=== PATIENT | female | born 1960 | race Caucasian/White ===

== ENCOUNTER → 2016-12-23 | Outpatient (CLI) | payer OTHER | END | disposition home or self-care (01) | LOC: GMAH 12-22 16:35 → LAB.O 08:34 | PROVIDERS: ATTEND Family Medicine | DX: I10 Essential (primary) hypertension (principal) ==

== ENCOUNTER → 2017-02-02 | Outpatient (CLI) | payer OTHER | END | disposition home or self-care (01) | LOC: GMAH 10:32 | PROVIDERS: ATTEND Family Medicine | DX: E87.6 Hypokalemia (principal) ==

== ENCOUNTER → 2017-03-08 | Outpatient (CLI) | payer OTHER | END | disposition home or self-care (01) | LOC: LAB.O 09:47 | PROVIDERS: ATTEND Family Medicine | DX: E87.6 Hypokalemia (principal) ==

== ENCOUNTER → 2017-04-05 | Outpatient (CLI) | payer OTHER | END | disposition home or self-care (01) | LOC: LAB.O 14:19 | PROVIDERS: ATTEND Family Medicine | DX: E87.6 Hypokalemia (principal) ==

== ENCOUNTER → 2017-04-08 | Outpatient (CLI) | payer OTHER ==
--- NOTE | 2017-04-09 10:15 | RAD ---
EXAM DESCRIPTION: Foot,Right 3 Views CLINICAL HISTORY: 57 years, Female, FOOT PAIN COMPARISON: None. FINDINGS: No fracture or dislocation. There is some nonspecific cortical thickening mid shaft third metatarsal be normal variant injury. Plantar heel spur. Some mild soft tissue swelling over the dorsum IMPRESSION: No fracture or dislocation. Plantar heel spur. Mild soft tissue swelling dorsum foot Electronically signed by: Adan Huitron MD 04/09/2017 10:14 AM CDT
== END | disposition home or self-care (01) ==
LOC: RAD 09:57
DX: M79.672 Pain in left foot (principal); M77.51 Other enthesopathy of right foot and ankle; M79.89 Other specified soft tissue disorders

== ENCOUNTER → 2017-05-05 | Outpatient (CLI) | payer OTHER | LOC: LAB.O 10:44 | PROVIDERS: ATTEND Family Medicine | DX: E87.6 Hypokalemia (principal) ==

== ENCOUNTER → 2017-06-20 | Outpatient (CLI) | payer OTHER ==
--- NOTE | 2017-06-21 15:46 | US ---
EXAM DESCRIPTION: Pelvic,Non-OB CLINICAL HISTORY: RIGHT OVARIAN CYST COMPARISON: MRI pelvis April 22, 2016. An older pelvic ultrasound from February 19, 2015 contains only a single image and is not helpful for comparison. TECHNIQUE: Transvaginal pelvic US was performed. FINDINGS: Uterus: The uterus is anteverted and measures 7.7 cm in length. The endometrium is suboptimally visualized but does not appear thickened. The myometrium appears diffusely heterogeneous with a questionable 1 cm intramural fibroid anteriorly. Cervix: Unremarkable. Right Ovary/Right Adnexa: The right ovary measures 6.7 x 5.2 x 5.0 cm and is nearly completely occupied by a large cyst with low-level internal echogenicity. Blood flow to the right ovary is noted along the periphery of the stomach lesion. The right ovarian cyst does not appear significantly changed in size from April 22, 2016. Left Ovary/Left Adnexa: The left ovary is suboptimally visualized but measures approximately 1.9 x 0.7 x 0.9 cm. The left ovarian or other left adnexal lesion. Blood flow is present to the left ovary.. Free Fluid: No pathologic free fluid. IMPRESSION: Large right ovarian cyst measuring approximately 6.7 cm maximum dimension with low-level internal echogenicity but no definite septation or other solid component. The size of the cyst is unchanged from April,. Considering its stability from the prior MRI, size and appearance on today's exam, this is almost certainly benign. Additional follow-up ultrasound in one year is recommended to document continued stability. Electronically signed by: Ayan Mosher MD 06/21/2017 3:44 PM CDT Workstation: [id number]
== END ==
LOC: US 14:19
PROVIDERS: ATTEND Obstetrics & Gynecology
DX: N83.291 Other ovarian cyst, right side (principal)

== ENCOUNTER → 2017-08-30 | Outpatient (CLI) | payer OTHER | END | disposition home or self-care (01) | LOC: GMAH 07:17 | PROVIDERS: ATTEND Family Medicine | DX: I10 Essential (primary) hypertension (principal) ==

== ENCOUNTER 2017-10-12 06:00 | Day surgery (SDC) | payer OTHER ==
[~2017-10-12 06:00] MED LIST: LACTATED RINGERS 1,000 ML ONE; SODIUM CHL 0.9% 100ML MINI-BAG 100 ML IVPB ONE; ceFAZolin SODIUM 1 GM VIAL ONE
[2017-10-12] MEDS ORDERED: LIDOCAINE 2% 5 ML VIAL ONE (06:37)
[2017-10-12] MEDS ORDERED: BUPIVACAINE 0.25% INJ 30 ML VIAL INJ ONE (06:50)
[2017-10-12] MEDS ORDERED: LIDOCAINE 1% 50 ML VIAL INJ ONE (06:50)
[2017-10-12] MEDS: VANCOMYCIN HCL INJ 1,000 MG VIAL IVPB ONE ×2 (07:22→07:31)
[2017-10-12] MEDS: ceFAZolin SODIUM 1 GM VIAL ONE ×2 (07:22→07:31)
[2017-10-12 08:03] VITALS: O2SAT 97
[2017-10-12 08:29] VITALS: BP 122/74; TEMP 96.5
--- NOTE | 2017-10-26 08:53 | OP ---
DATE OF PROCEDURE: 10/12/17 PREOPERATIVE DIAGNOSIS: 1. Ganglion cyst of the finger. POSTOPERATIVE DIAGNOSIS :1. Ganglion cyst of the finger. PROCEDURE: 1. Excision of ganglion cyst. SURGEON: Aden Hughes MD. RN MDS: Bud Lopez CST, SA-C. ANESTHESIA: Local anesthesia. COMPLICATIONS: None. FINDINGS: A small cyst arising from the tendon sheath along the proximal interphalangeal joint of the right third digit. INDICATION: Angelika has a history of a ganglion cyst on the digit. She had some local irritation secondary to that and requested operative intervention for removal. We discussed the risks, benefits and alternatives to operative therapy. After discussing the risks, benefits and alternatives to that, she gave informed consent. PROCEDURE: The patient was brought to the Operating Room and placed in supine position. Under sterile conditions, a digital block was performed and the arm was sterilely prepped and draped. Following prepping and draping, the cyst was approached through a longitudinal incision. Blunt dissection was used to identify the digital nerve which was protected throughout the course. The ganglion cyst was exposed and was removed at its base. Following excision of the cyst, the wound was very thoroughly irrigated and closed with Nylon sutures. Sterile dressing was placed. The patient was then taken back to the Day Surgery Unit. POSTOPERATIVE INSTRUCTIONS: She will followup with us in two days. #[id number] [facility]
== END 2017-10-12 08:25 | disposition home or self-care (01) ==
LOC: AMB 06:00
PROVIDERS: ATTEND Orthopaedic Surgery
DX: M67.441 Ganglion, right hand (principal)
CPT/HCPCS: 26160; 87070; 87077; 87186; J0690; J3370; J7050; J7120

== ENCOUNTER → 2018-01-19 | Outpatient (CLI) | payer OTHER | LOC: LAB.O 10:46 | PROVIDERS: ATTEND Family Medicine | DX: I10 Essential (primary) hypertension (principal) ==

== ENCOUNTER → 2018-04-18 | Outpatient (CLI) | payer OTHER ==
--- NOTE | 2018-04-18 14:24 | RAD ---
EXAM DESCRIPTION: Wrist,Left 3 Views CLINICAL HISTORY: 58 years Female, pain COMPARISON: None available. FINDINGS: The visualized bones are well-mineralized.No acute fracture or dislocation. The soft tissues appear grossly unremarkable. IMPRESSION: Grossly normal radiographs of the left wrist. Electronically signed by: Mary Wheeler MD 04/18/2018 2:22 PM CDT
== END ==
LOC: RAD 09:30
PROVIDERS: ATTEND Orthopaedic Surgery
DX: M25.532 Pain in left wrist (principal)

== ENCOUNTER → 2018-07-18 | Outpatient (CLI) | payer OTHER ==
--- NOTE | 2018-07-18 13:15 | MRI ---
EXAM DESCRIPTION: Brain w/wo Contrast CLINICAL HISTORY: MILD COGNITIVE IMPAIRMENT COMPARISON: None available TECHNIQUE: MRI of the brain is performed according to our usual protocol including multiplanar multi sequence technique. Post gadolinium imaging is performed following IV administration of 20 mL of Magnevist. FINDINGS: Sagittal T1 images show intact corpus callosum. Normal pituitary gland with normal T1 appearance of the opal and medulla and upper cervical cord. Normal signal intensity within the clivus and calvarium. Axial T2 fat sat images reveal preservation of intracranial vascular flow voids. Normal zeng matter and white matter T2 signal intensity. Normal ventricles with normal gyral and sulcal fold pattern. The globes appear intact and symmetrical. No abnormal fluid signal in the paranasal sinuses, tympanic cavities or mastoid air cells. Axial flair images show normal signal intensity of the zeng matter and the white matter. No microvascular ischemic changes. Diffusion weighted images are negative for focal intense increased signal intensity in the brain parenchyma to suggest restricted diffusion. ADC mapping is negative. Axial T1 precontrast images show normal zeng-white matter differentiation. No high signal intensity hemorrhagic lesion of the brain parenchyma. No subdural hematoma. Axial susceptibility weighted images are negative for focal signal loss to suggest abnormal brain parenchymal calcification or hemosiderin deposition. After IV contrast, axial T1 images show normal enhancement of intracranial vessels. No enhancing intracranial mass or abnormal parenchymal enhancement to suggest disruption of the blood brain barrier. Coronal T1 postcontrast images show normal dural sinus enhancement with normal enhancement of the pituitary gland. IMPRESSION: No diagnostic abnormality is identified on pre and postcontrast MR imaging of the brain. Electronically signed by: Ayush Hanley MD 07/18/2018 1:14 PM CDT
--- NOTE | 2018-07-18 15:08 | MRI ---
Study: MRI of the Left Ankle. Indication: ANKLE PAIN Technique: Multiplanar, multi sequence MRI of the left ankle was obtained without intravenous contrast. Comparison: Radiographs July 18, 2018. Findings: Anterior talofibular ligament markedly attenuated indicating prior high-grade partial-thickness tear. Prior sprains of the calcaneofibular ligament, deep deltoid ligament, anterior tibiofibular ligament noted as well. Mild cystic change medial margin lateral malleolus adjacent to the lateral margin talar dome. There is mild grade 4 chondrosis and subchondral marrow change of the superolateral margin of the talar dome. No acute fluid filled tear of the remaining medial or lateral ankle ligaments. Trace tenosynovitis medial tendons and peroneal tendons. Tendinosis and longitudinal fissuring of the peroneus brevis tendon inferior to the lateral malleolus extending to its insertion. No transection. Anterior tendons intact. Low-grade tendinosis critical zone and distal Achilles tendon with trace retrocalcaneal bursal fluid. Subtle insertional posterior tibialis tendinosis. Prior sprain of the distal margin of the spring ligament noted which is thickened with increased internal PD signal. Pes planus noted. No talar coalition. Moderate plantar calcaneal heel spur. Plantar fascia intact. Marrow edema noted within the trigonal process with mild surrounding inflammation as well as minimal adjacent edema in the superior margin calcaneal body. These changes can indicate sequela of posterior ankle impingement. Impression: Prior high-grade partial-thickness tearing anterior talofibular ligament as well as prior sprains of the calcaneofibular ligament, anterior tibiofibular ligament, and deep deltoid ligament. Mild cystic change superolateral talar dome and medial margin of the lateral malleolus indicating occult grade 4 chondrosis at these sites. Tenosynovitis medial tendons and peroneal tendons with long segment tendinosis and longitudinal fissuring previous brevis tendon. Insertional posterior tibialis tendinosis with prior sprain of the underlying spring ligament and mild pes planus. Low-grade Achilles tendinosis without tear. Features of posterior ankle impingement. Electronically signed by: Daljit Santiago MD 07/18/2018 3:06 PM CDT
--- NOTE | 2018-07-18 15:09 | RAD ---
Study: Three views of the Left Ankle. Indication: ANKLE PAIN Comparison: MRI, same day. Impression: Soft tissue swelling about the ankle. No acute fracture or malalignment. Minimal inferior spurring lateral malleolus at the calcaneofibular ligament origin indicating a prior sprain. Moderate plantar calcaneal heel spur. No advanced osteoarthritis. Electronically signed by: Daljit Santiago MD 07/18/2018 3:07 PM CDT
== END ==
LOC: MRI 10:24
PROVIDERS: ATTEND Specialist
DX: G31.84 Mild cognitive impairment of uncertain or unknown etiology (principal); R13.10 Dysphagia, unspecified; S93.432A Sprain of tibiofibular ligament of left ankle, initial encounter; M25.572 Pain in left ankle and joints of left foot; M77.52 Other enthesopathy of left foot and ankle

== ENCOUNTER → 2018-07-25 | Outpatient (CLI) | payer OTHER | LOC: GMAH 06:11 | PROVIDERS: ATTEND Family Medicine | DX: I10 Essential (primary) hypertension (principal) ==

== ENCOUNTER → 2018-08-06 | Outpatient (CLI) | payer OTHER | LOC: SL 21:30 | PROVIDERS: ATTEND Specialist | DX: G47.33 Obstructive sleep apnea (adult) (pediatric) (principal); R53.83 Other fatigue ==

== ENCOUNTER → 2019-02-06 | Outpatient (CLI) | payer BC ==
--- NOTE | 2019-02-06 19:04 | US ---
Study: Pelvic ultrasound. Indication:N83.209 CYST Technique: Multiplanar grayscale sonographic images of the pelvis obtained transabdominally as well as endovaginally Comparison: June 20, 2017. Findings: Uterus measures 8.7 x 3.4 x 4.2 cm. Endometrium measures 0.1 cm. Myometrium unremarkable. Right ovary measures 6.8 x 5.0 x 5.2 cm. It demonstrates a 6.8 x 5.0 x 4.9 cm simple cyst. Left ovary measures 2.4 x 1.3 x 1.6 cm. Left ovary unremarkable. Appropriate color Doppler flow to the ovaries. No free pelvic fluid. Impression: Stable 6.8 cm simple right ovarian cyst. Almost certainly benign. Follow-up sonogram recommended yearly. Electronically signed by: Daljit Santiago MD 02/06/2019 7:01 PM CDT
== END ==
LOC: US 13:46
PROVIDERS: ATTEND Obstetrics & Gynecology
DX: N83.209 Unspecified ovarian cyst, unspecified side (principal)

== ENCOUNTER 2019-02-07 09:57 | Inpatient (IN) | payer BC ==
--- NOTE | 2019-02-07 10:30 | HP ---
CHIEF COMPLAINT: Left elbow pain. HISTORY OF PRESENT ILLNESS: Ms. Zelaya is a 58-year-old female with a history of pain in the elbow. She has had pain going on since she bumped her elbow several days ago. While she has not had any fevers, she states she has been feeling more and more lethargic. She denies any radiation of pain. She had some drainage initially, however, has ceased having drainage. She is now having any increasing erythema in the arm with the increasing lethargy. Because of symptoms, she came to see me. PAST SURGICAL HISTORY: 1. Bursectomy. MEDICATIONS: 1. Lyrica. 2. Lexapro. 3. Flexeril. 4. Carbidopa. 5. Protonix. ALLERGIES: NO KNOWN DRUG ALLERGIES. CODE STATUS: Full code. IMMUNIZATIONS: Up to date. FAMILY HISTORY: None pertinent to today's complaint. SOCIAL HISTORY: The patient does not drink, smoke or use any illicit drugs. REVIEW OF SYSTEMS: Negative except as indicated in the History of Present Illness. PHYSICAL EXAMINATION: MENTAL STATUS: The patient is awake, alert, and is able to give a good history and participate in the physical. The patient is oriented to person, place and time. SKIN: Normal tone and turgor. HEENT: Normocephalic, atraumatic. Pupils equal, round and reactive. Mucosal membranes are moist. NECK: Normal range of motion. No thyromegaly, no lymphadenopathy. CHEST: Normal respiratory excursion. CARDIAC: Regular rate and rhythm. No murmurs, rubs or gallops. MUSCULOSKELETAL: She has full range of motion of the shoulders, digits and wrist. She has full range of motion of both elbows, however, she has pain with elbow flexion and extension. She has some erythema on the olecranon of the left elbow and has about a 7 to 8 mm eschar from the trauma she had. She has erythema extending approximately 8 cm both proximal and distal to the olecranon region. She has full sheet layer strength. Bilateral lower extremities show full active range of motion with 5/5 strength. Sensation is intact. They are warm and well perfused. She has no deformities. PROCEDURE: Under sterile conditions, I was able to aspirate approximately 5 mL of cloudy, but thin fluid. ASSESSMENT: 1. Possible septic bursitis. PLAN: At this point, I think it would be prudent to admit her for IV antibiotics. Given the worsening physical examination and constitutional symptoms, we are going to start her on vancomycin. We will send her fluid off for appropriate labs and will draw blood work to include CBC and blood cultures. #[id number] MTDD
[2019-02-07] MEDS ORDERED: SODIUM CHLORIDE 0.9% (FLUSH) 10 ML SYG IV PRN (10:35)
[2019-02-07] MEDS ORDERED: BISACODYL SUPPOSITORY 10 MG PR PRN (10:38)
[2019-02-07] MEDS ORDERED: TEMAZEPAM 15 MG CAP PO PRN (10:38)
[2019-02-07] MEDS ORDERED: ALUMINUM & MAGNESIUM HYDROXIDE 30 ML UD PO PRN (10:38)
[2019-02-07] MEDS ORDERED: CYCLOBENZAPRINE HCL 10 MG TAB PO PRN (10:38)
[2019-02-07] MEDS ORDERED: BENZOCAINE-MENTH LOZ (CEPACOL) 1 EA LOZ MT PRN (10:38)
[2019-02-07] MEDS ORDERED: MAGNESIUM HYDROXIDE 30 ML UD PO PRN (10:38)
[2019-02-07] MEDS ORDERED: ZOLPIDEM TARTRATE 5 MG TAB PO PRN (10:38)
[2019-02-07] MEDS ORDERED: IV SET AND CAP CHANGE INJ INJ SCH (11:00)
[2019-02-07] MEDS ORDERED: VANCOMYCIN PER PHARMACY INJ SCH (11:00)
[2019-02-07] MEDS ORDERED: VANCOMYCIN HCL INJ 1,000 MG VIAL IVPB ONE ×2 (13:14→19:26)
[2019-02-07] MEDS ORDERED: VANCOMYCIN HCL INJ 500 MG VIAL ONE ×2 (13:14→19:24)
[2019-02-07] MEDS ORDERED: SODIUM CHLORIDE 0.9% 250ML 250 ML ONE ×2 (13:14→19:25)
[2019-02-07] MEDS: VANCOMYCIN HCL INJ 1,000 MG, VANCOMYCIN HCL INJ 500 MG in SODIUM CHLORIDE 0.9% 250ML 25... IVPB SCH (13:24)
[2019-02-07] MEDS ORDERED: KETOROLAC TROMETHAMINE INJ 30 MG/ML VIAL IV ONE (15:45)
[2019-02-07] MEDS ORDERED: cefTRIAXone SODIUM 1 GM VIAL ONE (16:30)
[2019-02-07] MEDS ORDERED: SODIUM CHL 0.9% 50ML MIN-BAG+ 50 ML IVPB ONE (16:30)
[2019-02-07] MEDS: cefTRIAXone SODIUM 1 GM in SODIUM CHL 0.9% 50ML MIN-BAG+ 50 ML IVPB SCH (16:44)
[2019-02-07] MEDS ORDERED: KETOROLAC TROMETHAMINE INJ 30 MG/ML VIAL ONE (19:25)
[2019-02-07] MEDS ORDERED: POTASSIUM CHLORIDE 10 MEQ TAB PO ONE (19:25)
[2019-02-07] MEDS: KCL 20 MEQ/NS 1,000 ML IVS PRN (19:47)
[2019-02-07] MEDS: ACETAMINOPHEN 325 MG TAB PO SCH (19:50)
[2019-02-07] MEDS ORDERED: MELATONIN 3 MG TAB PO SCH (21:00)
[2019-02-07] MEDS: NON-FORMULARY MEDICATION 1 EA MIS (Potassium Chloride [Micro-K] 10 MEQ) PO SCH (21:30)
[2019-02-07] MEDS: PREGABALIN 100 MG CAP PO SCH (21:30)
[2019-02-07] MEDS: PANTOPRAZOLE SODIUM TAB 40 MG PO SCH (21:31)
[2019-02-07] MEDS: MELATONIN 3 MG TAB PO SCH (21:32)
[2019-02-07] MEDS: ATENOLOL 25 MG TAB PO SCH (21:32)
[2019-02-07] MEDS: KETOROLAC TROMETHAMINE INJ 30 MG/ML VIAL IV SCH (21:33)
[2019-02-08] MEDS: VANCOMYCIN HCL INJ 1,000 MG, VANCOMYCIN HCL INJ 500 MG in SODIUM CHLORIDE 0.9% 250ML 25... IVPB SCH ×2 (00:45→15:00)
[2019-02-08] MEDS: ACETAMINOPHEN 325 MG TAB PO SCH ×5 (00:45→16:22)
[2019-02-08] MEDS: KETOROLAC TROMETHAMINE INJ 30 MG/ML VIAL IV SCH ×2 (04:30→10:11)
[2019-02-08] MEDS: KCL 20 MEQ/NS 1,000 ML IVS PRN (04:31)
[2019-02-08] MEDS ORDERED: SODIUM CHLORIDE 0.9% 250ML 250 ML ONE ×2 (07:39→19:50)
[2019-02-08] MEDS ORDERED: SODIUM CHL 0.9% 50ML MIN-BAG+ 50 ML IVPB ONE (07:39)
[2019-02-08] MEDS ORDERED: VANCOMYCIN HCL INJ 500 MG VIAL ONE ×2 (07:39→19:50)
[2019-02-08] MEDS ORDERED: VANCOMYCIN HCL INJ 1,000 MG VIAL IVPB ONE ×2 (07:40→19:51)
[2019-02-08] MEDS ORDERED: cefTRIAXone SODIUM 1 GM VIAL ONE (07:40)
--- NOTE | 2019-02-08 08:10 | CONS ---
SUPERVISING PHYSICIAN: Martin Barton MD CHIEF COMPLAINT: Septic bursitis, left elbow. HISTORY OF PRESENT ILLNESS: Ms. 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 She came to Dr. Hughes's office today with swelling, edema, erythema and pain in her left elbow. She noted she and her had been to [place] on 01/20/19 and she fell and landed on her elbow. She apparently bumped it several days ago and since has had increasing pain in the elbow. She denied any fevers, but notes she does have increasing fatigue. Dr. Hughes was able to do aspiration of the bursa in the office, but given the patient's increasing lethargy, pain and symptoms, he is admitting the patient for concerns for septic bursitis and treatment with parenteral antibiotics. Hospitalist service is being consulted to assist with medical management. The patient was seen in stable condition. She was alert and able to participate fully with physical examination and history. PAST MEDICAL HISTORY: 1. Fibromyalgia. 2. Restless leg syndrome. 3. Hypertension. 4. Depression and anxiety on Lexapro. 5. Chronic gastroesophageal reflux disease on Protonix. PAST SURGICAL HISTORY: 1. Bursectomy of the right hip. 2. Spur removal of both heels. CURRENT MEDICATIONS: 1. Spironolactone 1 daily. 2. Lyrica 100 mg at bedtime. 3. Lyrica 50 mg daily. 4. Micro-K 10 mEq b.i.d. 5. Protonix 60 mg b.i.d. 6. Melatonin 10 mg at h.s. 7. Lexapro 1 tablet at bedtime. 8. Flexeril 10 mg at bedtime. 9. Vitamin D 2000 units daily. 10. Carbidopa/levodopa 25/100 mg 1 at bedtime. 11. Tenormin 25 mg at bedtime. 12. Albuterol inhaler 1 puff q.i.d. as needed. 13. Tylenol 325 mg q.4h. as needed for pain. ALLERGIES: NO KNOWN DRUG ALLERGIES. FAMILY HISTORY: Mother at age 68. Father at age 60. Both had problems with heart disease and high blood pressure. She has two siblings, one brother at age 50 from hypertension, another brother 70 with no chronic medical history. She has two children who are both healthy. SOCIAL HISTORY: The patient lives in [place], [place]. She works in the OR as a nurse. She has been 32 years. She has never smoked and drinks on rare social occasions. She denies illicit drug use. REVIEW OF SYSTEMS: CONSTITUTIONAL: Increasing fatigue and general malaise. Negative for any fevers or unintentional weight loss. HEENT: Negative for headaches, sore throats, earaches, visual disturbances. RESPIRATORY: Denies shortness of breath, wheezing or coughing. CARDIOVASCULAR: Negative for chest pain, palpitations, tachycardia or syncopal episodes. GASTROINTESTINAL: Negative for nausea, vomiting, diarrhea or abdominal pain. GENITOURINARY: Negative for dysuria, hematuria, polyuria. EXTREMITIES: As noted in history of present illness. Left elbow pain and swelling. NEUROLOGIC: Negative for any seizures, ataxia, headaches. Positive as noted in history of present illness for fibromyalgia and restless leg syndrome, but no notable focal neurological deficits. PHYSICAL EXAMINATION: VITAL SIGNS: Temperature 97.7. Pulse 83. Blood pressure 120/77. Respiratory rate 16. Oxygen saturation 100% on room air. Admission weight 106 kg. GENERAL: The patient is resting comfortable, appears to be in no acute distress. She is alert. HEENT: Tympanic membranes clear bilaterally. Oropharynx is pink, moist without any lesions. NECK: Supple, nontender with full range of motion. No jugular venous distention noted. RESPIRATORY: Lungs clear to auscultation bilaterally without any rhonchi, wheezes, or rales. CARDIOVASCULAR: Regular rate and rhythm without any appreciable murmurs, gallops, or rubs. ABDOMEN: Soft, nontender, obese. Positive bowel sounds. EXTREMITIES: Left elbow has approximately 8 mm eschar overlying the olecranon. Erythema is noted with edges marked with it extending distally. Warm to touch and tender. There is notable pain on flexion and extension. Distally, radial pulses are strong. Capillary refill brisk. Negative for any paresthesias. NEUROLOGIC: The patient is alert and oriented times three. Cranial nerves II- XII are grossly intact. LABORATORY: CBC on admission showed white count 7,100, hemoglobin 10.1, hematocrit 31.9. RBC indices indicate a microcytic/hyperchromic presentation. Differential without a left shift. Sedrate normal at 30. Chemistries show normal electrolytes. C-reactive protein is elevated at 7. BUN 23, creatinine 0.89. Synovial fluid cell count and crystals pending. MICROBIOLOGY: Wound culture of left bursa aspirate is pending. RADIOLOGY: No radiographic studies pending. ASSESSMENT: 1. Possible septic bursitis of left elbow. 2. History of hypertension. 3. History of fibromyalgia. 4. Microcytic/hyperchromic anemia needing further workup as an outpatient, possibly related to iron deficiency anemia. 5. Depression and anxiety. 6. History of restless leg syndrome on carbidopa. 7. Chronic gastroesophageal reflux disease on proton pump inhibitor. PLAN: The patient was admitted. We will follow the patient as needed. We will defer further orthopedic management to Dr. Hughes. We will monitor culture results. She has been started on vancomycin. I will go ahead and add Rocephin to cover for some possible strep awaiting culture results. Certainly when culture results are available, we will target antibiotic therapy as appropriate. We will monitor labs and go ahead and do iron studies in the morning with AM labs. We will review her home medications and resume all as appropriate. She will be on DVT prophylaxis with Lovenox. We will start her on some Toradol IV 30 mg and continue with scheduled q.6h. for at least 3 doses to help with some inflammation and pain control. We will anticipate her length of stay to be at least 2 to 3 days. Until she can transition to outpatient management, we will continue to monitor and treat as needed. #[id number] MTDD
--- NOTE | 2019-02-08 08:25 | PN ---
DATE: 02/08/19 SUBJECTIVE: She has improved since yesterday and her pain is decreased. OBJECTIVE: Afebrile. Vital signs stable. The wound is clean and erythema has decreased significantly from yesterday. She still has some swelling and some increased warmth in the elbow. ASSESSMENT: Olecranon bursitis. PLAN: The plan at this point is for her to continue with IV antibiotics. Rocephin has been added to the regimen. We will continue to monitor her elbow. Once we get the cultures back, we will adjust accordingly. #[id number] [facility]
[2019-02-08] MEDS: PANTOPRAZOLE SODIUM TAB 40 MG PO SCH ×2 (08:57→16:18)
[2019-02-08] MEDS: POTASSIUM CHLORIDE 10 MEQ TAB PO SCH ×2 (10:05→20:48)
[2019-02-08] MEDS: SPIRONOLACTONE 25 MG TAB PO SCH (10:05)
[2019-02-08] MEDS: PREGABALIN 25 MG CAP PO SCH (10:05)
[2019-02-08] MEDS: CHOLECALCIFEROL 2,000 IU TAB PO SCH (10:06)
[2019-02-08] MEDS: NON-FORMULARY MEDICATION 1 EA MIS (Potassium Chloride [Micro-K] 10 MEQ) PO SCH (15:37)
[2019-02-08] MEDS: FERROUS GLUCONATE 325 MG TAB PO SCH (16:18)
[2019-02-08] MEDS: cefTRIAXone SODIUM 1 GM in SODIUM CHL 0.9% 50ML MIN-BAG+ 50 ML IVPB SCH (16:18)
[2019-02-08] MEDS: MELATONIN 3 MG TAB PO SCH (20:47)
[2019-02-08] MEDS: PREGABALIN 100 MG CAP PO SCH (20:47)
[2019-02-08] MEDS: ACETAMINOPHEN 325 MG TAB PO PRN (20:48)
[2019-02-08] MEDS: ATENOLOL 25 MG TAB PO SCH (20:48)
[2019-02-08] MEDS: CARBIDOPA/LEVODOPA 25/100 1 TAB PO SCH ×2 (20:49)
[2019-02-08] MEDS ORDERED: CYCLOBENZAPRINE HCL 10 MG TAB PO SCH (21:00)
[2019-02-08] MEDS ORDERED: ESCITALOPRAM 10 MG TAB PO SCH (21:00)
--- NOTE | 2019-02-08 21:38 | PN ---
DATE: 02/08/19 SUPERVISING PHYSICIAN: Martin Barton M.D. SUBJECTIVE: The patient notes that she feels much better today. Her pain has been better controlled. The swelling in her elbow has significantly decreased and she is able to eat. OBJECTIVE: VITAL SIGNS: She remains afebrile with a T max of 98.6, pulse 73, blood pressure 134/84, respirations 16, satting 97% on room air. I's and O's show a positive balance of 1610. Weight 106.9 kg. GENERAL: The patient is resting comfortably. Appears to be in no acute distress. She is alert. CHEST: Clear to auscultation. HEART: Regular rate and rhythm. ABDOMEN: Soft, non- tender. Positive bowel sounds. EXTREMITIES: Left elbow today shows significantly decreased erythema and not warm to touch compared to admission. She has a little more increased range of motion, specifically on extension. NEUROLOGIC: She is alert and oriented times three. LABORATORY: Synovial fluid workup is still pending. Chemistries: I just ran an iron panel on her which showed a low iron of 15, TIBC 300 and iron saturation of 5 with ferritin of 26.9. MICROBIOLOGY: Wound culture shows no growth at 24 hours. RADIOLOGY: No additional radiographic studies. ASSESSMENT: 1. Possible septic bursitis of left elbow with current culture results showing no growth. 2. History of hypertension. 3. History of fibromyalgia. 4. Microcytic/hyperchromic anemia with workup indicating iron deficiency anemia with the patient starting on iron. 5. Depression and anxiety. 6. History of restless leg syndrome on carbidopa. 7. Chronic gastroesophageal reflux disease on proton pump inhibitor. PLAN: Will continue his antibiotic coverage with Rocephin and vancomycin per Pharmacy protocol. Will await final cultures to adjust antibiotic therapy as needed. The patient was started on iron therapy and the patient will need to followup with Dr. Melendez as an outpatient. I anticipate hopefully being able to discharge tomorrow if she continues to show improvement. Until she can transition to outpatient management will continue to monitor and treat as needed. #[id number] [facility]
[2019-02-09] MEDS: VANCOMYCIN HCL INJ 1,000 MG, VANCOMYCIN HCL INJ 500 MG in SODIUM CHLORIDE 0.9% 250ML 25... IVPB SCH ×2 (01:00→15:41)
[2019-02-09 07:56] VITALS: TEMP 98
[2019-02-09] MEDS: PANTOPRAZOLE SODIUM TAB 40 MG PO SCH ×2 (07:56→16:44)
[2019-02-09] MEDS: FERROUS GLUCONATE 325 MG TAB PO SCH ×2 (07:56→17:19)
[2019-02-09] MEDS: POTASSIUM CHLORIDE 10 MEQ TAB PO SCH (09:35)
[2019-02-09] MEDS: CHOLECALCIFEROL 2,000 IU TAB PO SCH (09:35)
[2019-02-09] MEDS: SPIRONOLACTONE 25 MG TAB PO SCH (09:35)
[2019-02-09] MEDS: PREGABALIN 25 MG CAP PO SCH (09:40)
[2019-02-09] MEDS: ACETAMINOPHEN 325 MG TAB PO PRN (09:50)
[2019-02-09 14:16] VITALS: BP 134/82; O2SAT 98
[2019-02-09] MEDS ORDERED: VANCOMYCIN HCL INJ 500 MG VIAL ONE (15:26)
[2019-02-09] MEDS ORDERED: SODIUM CHLORIDE 0.9% 250ML 250 ML ONE (15:26)
[2019-02-09] MEDS ORDERED: VANCOMYCIN HCL INJ 1,000 MG VIAL IVPB ONE (15:27)
[2019-02-09] MEDS ORDERED: SODIUM CHL 0.9% 50ML MIN-BAG+ 50 ML IVPB ONE (16:38)
[2019-02-09] MEDS ORDERED: cefTRIAXone SODIUM 1 GM VIAL ONE (16:39)
[2019-02-09] MEDS: cefTRIAXone SODIUM 1 GM in SODIUM CHL 0.9% 50ML MIN-BAG+ 50 ML IVPB SCH (18:00)
--- NOTE | 2019-02-12 09:01 | PN ---
DATE: 02/09/19 Ms. Zelaya is much improved today compared to yesterday. She has had a significant decrease in the erythema and minimal discomfort. She has full range of motion and she is no longer feeling general malaise. At this point, we are going to continue with antibiotic therapy and I think she can likely be discharged safely on oral antibiotics. I will see her in followup in clinic and she has my personal phone number for over the weekend if she has any change in her condition. She has also been instructed to return to the Emergency Room should any significant change occur. #[id number] MTDD
--- NOTE | 2019-02-13 22:48 | DS ---
SUPERVISING PHYSICIAN: Martin Barton M.D. ADMISSION DIAGNOSIS: 1. Possible septic bursitis of left elbow. 2. History of hypertension. 3. History of fibromyalgia. 4. Microcytic/hyperchromic anemia needing further workup as an outpatient, possibly related to iron deficiency anemia. 5. Depression and anxiety. 6. History of restless leg syndrome on carbidopa. 7. Chronic gastroesophageal reflux disease on proton pump inhibitor. DISCHARGE DIAGNOSIS: 1. Septic bursitis of left elbow with final culture results showing Methicillin resistant Staphylococcus aureus that was sensitive to Bactrim and vancomycin with the patient showing good response to parenteral antibiotics including vancomycin and Rocephin. 2. History of hypertension. 3. History of fibromyalgia. 4. Microcytic/hyperchromic anemia with workup indicating iron deficiency anemia with the patient starting on iron. 5. Depression and anxiety. 6. History of restless leg syndrome on carbidopa. 7. Chronic gastroesophageal reflux disease on proton pump inhibitor. REASON FOR ADMISSION: Ms. 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 She came to Dr. Hughes's office today with swelling, edema, erythema and pain in her left elbow. She noted she and her had been to [place] on 01/20/19 and she fell and landed on her elbow. She apparently bumped it several days ago and since has had increasing pain in the elbow. She denied any fevers, but notes she does have increasing fatigue. Dr. Hughes was able to do aspiration of the bursa in the office, but given the patient's increasing lethargy, pain and symptoms, he is admitting the patient for concerns for septic bursitis and treatment with parenteral antibiotics. Hospitalist service is being consulted to assist with medical management. The patient was seen in stable condition. She was alert and able to participate fully with physical examination and history. LABORATORY STUDIES: White count on admission was 7,100. Differential showed to be without a left shift. Hemoglobin 10.1, hematocrit 31.9 with RBC indices indicating microcytic hypochromic presentation. H&H at discharge was 9 and 28.1. White count was 4,400. Sed rate was 30. Chemistries showed normal electrolytes both on admission and discharge. C reactive protein was 7 on admission and discharge was 3.3. BUN 23, creatinine 0.77. Iron studies showed iron of 15, TIBC of 299 with iron saturation of 5 and ferritin of 26.9. She had a vancomycin trough that was 14.9. Cell count on the aspirated synovial fluid showed 10,608 nucleated cells, 95% neutrophils, 2% lymphocytes. MICROBIOLOGY: Positive MRSA that was sensitive to both Bactrim and vancomycin. RADIOLOGY: No radiographic studies prior to admission. HOSPITAL COURSE: Ms. Zelaya was admitted on 02/07/19 for septic bursitis which was found to be secondary to MRSA. She was started on vancomycin infusions and dual coverage with Rocephin. She did well with the treatment and showed good improvement and was no longer having any significant swelling, redness or soreness in the elbow prior to discharge. She was also found to be anemic which was felt to be secondary to iron deficiency with no acute loss and started on iron supplements, and was showing to be without any complications. She was felt to be clinically stable enough to discharge on 02/09/19. PLAN: Ms. Zelaya is to followup with Dr. Hughes and Dr. Melendez in the following week after discharge. She was to continue her home medications as directed and take new medications as instructed. She was to increase activity as tolerated but no pulling or pushing with the left elbow and arm. She was to shower but no tub baths and to keep the wound clean and covered. Diet at discharge was regular diet as tolerated. Activity as tolerated. Medications at discharge included: 1. Vantin 200 mg twice daily for 21 days. 2. Fergon 325 mg twice daily with food for 30 days to be followed-up with Dr. Melendez. 3. Bactrim DS 1 tab twice daily for 21 days. DISPOSITION: The patient was discharged to the care of her family. Condition at discharge was stable and improving. #[id number] [facility]
== END 2019-02-09 18:35 | disposition home or self-care (01) | DRG 558 ==
LOC: LAB.O 09:57 → MS 10:20
PROVIDERS: ADMIT Orthopaedic Surgery; ATTEND Nurse Practitioner Family
DX: M71.122 Other infective bursitis, left elbow (principal); B95.62 Methicillin resistant Staphylococcus aureus infection as the cause of diseases classified elsewhere; M79.7 Fibromyalgia; G25.81 Restless legs syndrome; I10 Essential (primary) hypertension; K21.9 Gastro-esophageal reflux disease without esophagitis; F41.9 Anxiety disorder, unspecified; F32.9 Major depressive disorder, single episode, unspecified; D50.9 Iron deficiency anemia, unspecified; Z87.828 Personal history of other (healed) physical injury and trauma; Z79.899 Other long term (current) drug therapy

== ENCOUNTER → 2019-03-29 | Outpatient (CLI) | payer BC | LOC: SL 20:00 | PROVIDERS: ATTEND Family Medicine | DX: G47.33 Obstructive sleep apnea (adult) (pediatric) (principal) ==

== ENCOUNTER → 2019-08-29 | Outpatient (CLI) | payer BC | LOC: GMATM 14:08 | PROVIDERS: ATTEND Nurse Practitioner Family | DX: R00.0 Tachycardia, unspecified (principal); R51 Headache ==

== ENCOUNTER → 2019-09-04 | Outpatient (CLI) | payer BC ==
--- NOTE | 2019-09-05 08:39 | MRI ---
EXAM DESCRIPTION: Hip,Right CLINICAL HISTORY: RUPTURE OF MUSCLE. Right hip pain, prior bursectomy. COMPARISON: None Available. TECHNIQUE: MRI of the right hip is performed according to our usual protocol with multiplanar multi sequence imaging. No intravenous contrast. FINDINGS: Bones and joints: No focal bone marrow contusion or fracture. No evidence of avascular necrosis of the femoral heads. The cartilage is intact without full-thickness defect. Labrum: Limited evaluation of the labrum demonstrate no displaced labral tear. Tendons and ligaments: High-grade partial-thickness tears of the gluteus minimus tendon along the anterior greater trochanter facet. No tendon retraction. Mild partial-thickness tear of the anterior fibers of the gluteus medius medius tendon along the posterior lateral trochanter facets. Mild tendinosis of the common hamstring tendons which are otherwise intact. Neural vasculature: The visualized vasculature and sciatic nerve are intact. Soft tissues: Grade 1 strain of the right gluteus minimus and medius muscles. Postsurgical changes and mild edema is noted along the soft tissues overlying the right greater trochanter and surrounding the adjacent tensor fascia. Partially visualized intrapelvic contents demonstrate small fundal uterine leiomyomas. IMPRESSION: 1. Postsurgical changes with mild soft tissue edema overlying the right greater trochanter and surrounding the tensor fascia. 2. High-grade partial-thickness tears of the gluteus minimus tendon without retraction. 3. Mild partial-thickness tears of the anterior gluteus medius tendon without retraction. 4. Grade 1 strains of the gluteus minimus and medius muscles. Electronically signed by: Krystian Castillo DO 09/05/2019 8:37 AM CDT
== END ==
LOC: MRI 11:49
PROVIDERS: ATTEND Orthopaedic Surgery
DX: M62.151 Other rupture of muscle (nontraumatic), right thigh (principal); Z98.890 Other specified postprocedural states

== ENCOUNTER → 2019-09-25 | Outpatient (CLI) | payer BC | LOC: LAB.O 15:43 | PROVIDERS: ATTEND Orthopaedic Surgery | DX: Z01.818 Encounter for other preprocedural examination (principal) ==

== ENCOUNTER 2019-10-09 05:49 | Inpatient (IN) | payer BC ==
[2019-10-09] MEDS ORDERED: VANCOMYCIN HCL INJ 1,000 MG VIAL IVPB ONE ×3 (06:43→19:02)
[2019-10-09] MEDS ORDERED: ceFAZolin SODIUM 1 GM VIAL ONE (06:43)
[2019-10-09] MEDS ORDERED: BUPIVACAINE LIPOSOME 13.3 MG/ML VIAL INJ ONE (06:44)
[2019-10-09] MEDS ORDERED: KETAMINE HCL 100 MG/ML VIAL ONE (06:47)
[2019-10-09] MEDS ORDERED: fentaNYL CITRATE INJ 50 MCG/ML AMP ONE (06:48)
[2019-10-09] MEDS ORDERED: ACETAMINOPHEN IV 1000MG 100 ML ONE (06:48)
[2019-10-09] MEDS ORDERED: ROCURONIUM BROMIDE 10 MG/ML VIAL ONE (06:48)
[2019-10-09] MEDS ORDERED: MIDAZOLAM INJ 5 MG/5 ML VIAL ONE (06:48)
[2019-10-09] MEDS ORDERED: methylPREDNISolone ACETATE 80 MG/ML VIAL ONE (07:07)
[2019-10-09] MEDS ORDERED: LIDOCAINE 1% W/ EPINEPHRINE 20 ML VIAL INJ ONE (07:07)
[2019-10-09] MEDS: BUPIVACAINE 0.5% 30 ML VIAL INJ ONE ×3 (07:25→09:12)
[2019-10-09] MEDS ORDERED: SUGAMMADEX SODIUM 200 MG/2 ML VIAL IV ONE (08:35)
[2019-10-09] MEDS ORDERED: ELECTROLYTE-A 1,000 ML IVS ONE (08:35)
[2019-10-09] MEDS ORDERED: CYCLOBENZAPRINE HCL 10 MG TAB PO PRN (09:18)
[2019-10-09] MEDS ORDERED: MORPHINE SULFATE INJ 10 MG/ML VIAL IV PRN (09:18)
[2019-10-09] MEDS ORDERED: ACETAMINOPHEN 500 MG TAB PO PRN (09:18)
[2019-10-09] MEDS ORDERED: ACETAMINOPHEN 325 MG TAB PO PRN (09:18)
[2019-10-09] MEDS ORDERED: PROMETHAZINE HCL INJ 12.5 MG in SODIUM CHLORIDE 0.9% 50ML 50 ML IVPB PRN (09:18)
[2019-10-09] MEDS ORDERED: BENZOCAINE-MENTH LOZ (CEPACOL) 1 EA LOZ MT PRN (09:18)
[2019-10-09] MEDS ORDERED: TEMAZEPAM 15 MG CAP PO PRN (09:18)
[2019-10-09] MEDS ORDERED: DEX 5% W/NACL 0.45% 1000ML 1,000 ML IVS PRN (09:18)
[2019-10-09] MEDS ORDERED: ALUMINUM & MAGNESIUM HYDROXIDE 30 ML UD PO PRN (09:18)
[2019-10-09] MEDS ORDERED: ONDANSETRON INJ 4 MG/2 ML VIAL IV PRN (09:18)
[2019-10-09] MEDS ORDERED: SODIUM CHLORIDE 0.9% (FLUSH) 10 ML SYG IV PRN (09:18)
[2019-10-09] MEDS ORDERED: MAGNESIUM HYDROXIDE 30 ML UD PO PRN (09:18)
[2019-10-09] MEDS ORDERED: ZOLPIDEM TARTRATE 5 MG TAB PO PRN (09:18)
[2019-10-09] MEDS ORDERED: NALOXONE HCL INJ 0.4 MG/ML VIAL IV PRN (09:18)
[2019-10-09] MEDS ORDERED: traMADol HCL 50 MG TAB PO PRN (09:18)
[2019-10-09] MEDS ORDERED: MORPHINE SULFATE INJ 10 MG/ML VIAL IM PRN (09:18)
[2019-10-09] MEDS ORDERED: PROMETHAZINE HCL INJ 25 MG in SODIUM CHLORIDE 0.9% 50ML 50 ML IVPB PRN (09:18)
[2019-10-09] MEDS ORDERED: BISACODYL SUPPOSITORY 10 MG PR PRN (09:18)
[2019-10-09] MEDS ORDERED: MORPHINE PCA 1 MG/ML 100 ML BAG IVPB SCH (09:30)
[2019-10-09] MEDS ORDERED: IV SET AND CAP CHANGE INJ INJ SCH (09:30)
[2019-10-09] MEDS ORDERED: HYDROmorphone HCL INJ 2 MG/ML VIAL ONE (09:54)
[2019-10-09] MEDS ORDERED: MAGNESIUM SULFATE INJ 1 GM/2 ML VIAL IVPB ONE (10:00)
[2019-10-09] MEDS ORDERED: HYDROmorphone HCL INJ 2 MG/ML VIAL IV ONE ×5 (10:00→10:30)
[2019-10-09] MEDS ORDERED: DEXAMETHASONE INJ 10 MG/ML VIAL IV ONE (10:00)
[2019-10-09] MEDS ORDERED: ePHEDrine SULF 50 MG/ML IV ONE (10:00)
[2019-10-09] MEDS ORDERED: SODIUM CHLORIDE 0.9% 50 ML VIAL INJ ONE (10:00)
[2019-10-09] MEDS ORDERED: PROPOFOL 200 MG/20 ML VIAL IV ONE (10:00)
[2019-10-09] MEDS ORDERED: raNITIdine HCL INJ 25 MG/ML VIAL IV ONE (10:00)
[2019-10-09] MEDS ORDERED: MORPHINE SULFATE INJ 10 MG/ML VIAL IV ONE ×2 (10:44→10:54)
[2019-10-09] MEDS ORDERED: MORPHINE PCA 1 MG/ML 100 ML BAG IVPB ONE (11:10)
--- NOTE | 2019-10-09 13:39 | CONS ---
SUPERVISING PHYSICIAN: Sebastian Newton MD DATE OF CONSULTATION: 10/09/19 REASON FOR CONSULTATION: Medical management. HISTORY OF PRESENT ILLNESS: This is a 59-year-old female who underwent surgical intervention today. Apparently she had a right hip abductor muscle tear as well as some left hip bursitis. Therefore, she underwent a right hip abductor musculature repair today and also a steroid injection of the left hip bursa. There were no intraoperative complications. The patient came in Medical/Surgical Unit postoperatively. She was in no distress and had no complaints of pain at this time. PAST MEDICAL HISTORY: 1. Fibromyalgia. 2. Restless leg syndrome. 3. Hypertension. 4. Depression with anxiety. 5. Gastroesophageal reflux disease. 6. Asthma. PAST SURGICAL HISTORY: 1. Bursectomy of the right hip. 2. Bone spur removal from both heels. MEDICATIONS: Please medication reconciliation list once it is confirmed in the computer. ALLERGIES: NO KNOWN DRUG ALLERGIES. FAMILY HISTORY: Her mother was at age 68. Father at age 60. Both had heart disease and high blood pressure. She has two siblings, one brother who at age 50 from hypertension and another brother who is 70 years old with no medical history. She has two children who are healthy. 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 She is and has two children. She has never smoked or done illicit drugs, however, she does drink alcohol on occasion. REVIEW OF SYSTEMS: She had some right hip pain and left hip pain, but otherwise no other significant orthopedic complaints. She does have a history of asthma well. She took a breathing treatment on the way into the hospital. PHYSICAL EXAMINATION: VITAL SIGNS: Blood pressure 125/73. Heart rate 80. Respiratory rate 20. Temperature 96.4. Oxygen saturation 96%. GENERAL: Ms. Zelaya is a 59-year-old female who is in no active distress currently. NEUROLOGIC: The patient is alert and oriented. LUNGS: Clear to auscultation bilaterally. CARDIOVASCULAR: Regular rate and rhythm. Normal S1, S2. ABDOMEN: Soft. Positive bowel sounds. EXTREMITIES: Right hip with dressing which is dry and intact. Ice pack is in place. Peripheral pulses are 2+. Capillary refill is less than 2 seconds. ASSESSMENT: 1. Right hip abductor musculature tear status post right abductor musculature repair, postoperative day 0. 2. Left hip bursitis status post steroid injection to the left hip bursa. 3. Asthma. 4. Fibromyalgia. 5. Restless leg syndrome. 6. Hypertension. 7. Depression with anxiety. 8. Reflux. PLAN: At this time, the patient will be admitted to the Med/Surg Unit and participate in physical therapy as well as pain control measures. We will resume her home medications as well. We will monitor the patient's physical therapy needs and follow as an inpatient. [facility][id number]
[2019-10-09] MEDS ORDERED: ceFAZolin SODIUM 2 GRAMS PREMI 50 ML IVPB ONE ×2 (16:03→19:02)
[2019-10-09] MEDS: ceFAZolin SODIUM 2 GRAMS PREMI 2 GM in PREMIX BAG 1 BAG IVPB SCH ×2 (16:06→23:56)
[2019-10-09] MEDS ORDERED: SODIUM CHLORIDE 0.9% 250ML 250 ML ONE ×2 (17:56→19:01)
[2019-10-09] MEDS: CELECOXIB 100 MG CAP PO SCH (18:01)
[2019-10-09] MEDS: VANCOMYCIN HCL INJ 1,000 MG in SODIUM CHLORIDE 0.9% 250ML 250 ML IVPB SCH (18:04)
[2019-10-09] MEDS ORDERED: MELATONIN 3 MG TAB PO SCH (21:00)
[2019-10-09] MEDS ORDERED: DOCUSATE CALCIUM 240 MG CAP PO SCH (21:00)
[2019-10-09] MEDS ORDERED: ALBUTEROL INHALER 64 PUFF/8GM INH PRN (22:08)
[2019-10-09] MEDS ORDERED: PREGABALIN 100 MG CAP PO ONE (22:13)
[2019-10-10] MEDS: VANCOMYCIN HCL INJ 1,000 MG in SODIUM CHLORIDE 0.9% 250ML 250 ML IVPB SCH (06:05)
[2019-10-10] MEDS ORDERED: POTASSIUM CHLORIDE 10 MEQ TAB PO ONE (07:25)
[2019-10-10] MEDS ORDERED: ceFAZolin SODIUM 2 GRAMS PREMI 50 ML IVPB ONE (07:25)
[2019-10-10] MEDS ORDERED: PREGABALIN 25 MG CAP ONE (07:26)
[2019-10-10] MEDS: ceFAZolin SODIUM 2 GRAMS PREMI 2 GM in PREMIX BAG 1 BAG IVPB SCH (07:28)
[2019-10-10] MEDS: CELECOXIB 100 MG CAP PO SCH (07:28)
[2019-10-10] MEDS: HYDROcodone 5MG/APAP 325MG 1 EA TAB PO PRN ×2 (08:04→13:08)
[2019-10-10] MEDS ORDERED: SPIRONOLACTONE 25 MG TAB PO SCH (09:00)
[2019-10-10] MEDS ORDERED: MAGNESIUM OXIDE 400 MG TAB PO SCH (09:00)
[2019-10-10] MEDS ORDERED: PREGABALIN 25 MG CAP PO SCH (09:00)
[2019-10-10] MEDS ORDERED: POTASSIUM CHLORIDE 10 MEQ TAB PO SCH (09:00)
--- NOTE | 2019-10-10 09:07 | OP ---
DATE OF PROCEDURE: 10/09/19 PREOPERATIVE DIAGNOSIS: 1. Abductor musculature rupture. POSTOPERATIVE DIAGNOSIS: 1. Rupture of the gluteus minimus and partial rupture of the gluteus medius tendons from their anatomic insertion. PROCEDURE: 1. Repair of abductor tendons. SURGEON: Aden Hughes MD. JOB RECRUITER: Bud Lopez CST, -C. ANESTHESIA: General anesthesia. COMPLICATIONS: None. FINDINGS: 1. Rupture of the gluteus minimus tendon. 2. Partial rupture of the gluteus medius tendon. INDICATION: Ms. Zelaya has a long history of severe pain associated with her bursitis. She had been undergoing injections and tried to avoid surgery. Unfortunately, she no longer could tolerate the pain and as such, we discussed her options. After discussing the risks, benefits and alternatives to operative therapy, the patient has given informed consent. PROCEDURE: The patient was brought to the Operating Room and placed in supine position. General anesthesia was induced and she was transitioned into the left lateral decubitus position. Following that, an incision was made in line with previous incision for her bursectomy. Dissection was carried down to the iliotibial band. After the iliotibial band was split along the course of its fibers, the abductor musculature was identified. The above findings were noted. The abductor musculature was freed from adhesions and fully mobilized. Following that, the bony insertion was debrided. Two suture anchors that were double loaded were placed and used to reapproximate the tendons anatomically. Following that, the tendon insertions were oversewn further with Ethibond. The rest of the wound was very thoroughly irrigated. The remaining musculature and the iliotibial band were closed with PDS. Following closure with PDS, the skin was closed with a combination of running and interrupted subcuticular stitches. Sterile dressings were placed. The patient was transitioned into the supine position and awoken from anesthesia. She was taken to the Recovery Room. POSTOPERATIVE PLAN: She will be restricted from any abduction. She will have flexion only to 90 degrees and external and internal rotation only at neutral. She will also be about 50% weightbearing. #[id number] [facility]
--- NOTE | 2019-10-10 09:16 | PN ---
DATE: 10/10/19 SUBJECTIVE: Angelika has been doing pretty well and has been up to the bathroom on her own with a walker. OBJECTIVE: Afebrile. Vital signs stable. Dressing is clean, dry and intact. ASSESSMENT: Status post abductor musculature repair. PLAN: The plan today is to discharge her. She has been given appropriate instructions on wound care. She will followup with us in 2 weeks. #[id number] [facility]
[2019-10-10 09:43] VITALS: TEMP 97.9
[2019-10-10 12:19] VITALS: O2SAT 95
[2019-10-10 12:24] VITALS: BP 126/79
[2019-10-10] MEDS ORDERED: ESCITALOPRAM 10 MG TAB PO SCH (21:00)
[2019-10-10] MEDS ORDERED: ATENOLOL 25 MG TAB PO SCH (21:00)
[2019-10-10] MEDS ORDERED: MELATONIN 3 MG TAB PO SCH (21:00)
[2019-10-10] MEDS ORDERED: CARBIDOPA/LEVODOPA 25/100 1 TAB PO SCH (21:00)
[2019-10-10] MEDS ORDERED: PREGABALIN 100 MG CAP PO SCH (21:00)
[2019-10-10] MEDS ORDERED: CYCLOBENZAPRINE HCL 10 MG TAB PO SCH (21:00)
--- NOTE | 2019-10-11 07:56 | DS ---
SUPERVISING PHYSICIAN: Sebastian Newton MD DISCHARGE DIAGNOSIS: 1. Right hip abductor musculature tear status post right abductor musculature repair, postoperative day 1. 2. Left hip bursitis status post steroid injection to the left hip bursa. 3. Asthma. 4. Fibromyalgia. 5. Restless leg syndrome. 6. Hypertension. 7. Depression with anxiety. 8. Reflux. HISTORY OF PRESENT ILLNESS: This is a 59-year-old female patient who underwent surgical intervention by Dr. Aden Hughes today. She had a right hip abductor muscle tear as well as some left hip bursitis. Therefore, she underwent a right hip abductor musculature repair today and also a steroid injection of the left hip bursa. There were no intraoperative complications. Postoperatively, she was admitted to the Floor for observation. HOSPITAL COURSE: Her pain was well controlled overnight. She has met her goals with Physical Therapy and she will be discharged home today in stable condition. LABORATORY: Hemoglobin and hematocrit were stable today at 11.6 and 35.3. UDS was negative on admission. All other labs and films have been reviewed via the EMR. DISCHARGE PLAN: The patient will be discharged home in stable condition. She is to resume her previous diet as well as her previous medications. In addition to her routine medications, she will also have hydrocodone for pain. She is to increase her activity as per Physical Therapy and have physical therapy scheduled at [facility]. She has a followup appointment with Dr. Hughes on 10/25/19 at 10:30 AM. She is to return to the hospital or followup with Dr. Hughes for any problems or complications. DISCHARGE MEDICATIONS: 1. Potassium chloride. 2. Melatonin. 3. Cyclobenzaprine. 4. Carbidopa/Levodopa. 5. Albuterol. 6. Pantoprazole. 7. Spironolactone. 8. Lexapro. 9. Tenormin. 10. Lyrica. 11. Hydrocodone. #[id number] [facility]
== END 2019-10-10 15:30 | disposition home or self-care (01) | DRG 502 ==
LOC: AMB 05:49 → MS 11:35
PROVIDERS: ADMIT Orthopaedic Surgery; ATTEND Nurse Practitioner Acute Care
PROC: 0LMJ0ZZ Reattachment of Right Hip Tendon, Open Approach (ICD-10-PCS; principal; 2019-10-09 07:00)
DX: M66.38 Spontaneous rupture of flexor tendons, other site (principal); M79.7 Fibromyalgia; G25.81 Restless legs syndrome; I10 Essential (primary) hypertension; F41.8 Other specified anxiety disorders; K21.9 Gastro-esophageal reflux disease without esophagitis; J45.909 Unspecified asthma, uncomplicated; G47.30 Sleep apnea, unspecified; E66.9 Obesity, unspecified; Z68.38 Body mass index [BMI] 38.0-38.9, adult; Z79.899 Other long term (current) drug therapy

== ENCOUNTER → 2020-03-25 | Outpatient (CLI) | payer BC ==
--- NOTE | 2020-03-25 14:09 | RAD ---
EXAM DESCRIPTION: Foot,Left 3 Views CLINICAL HISTORY: FOOT PAIN COMPARISON: 04/08/2017. TECHNIQUE: AP, LATERAL, AND OBLIQUE FINDINGS: The visualized bones appear well mineralized. No acute fracture or dislocation. Mild osteoarthritis of the first metatarsophalangeal joint. Small plantar calcaneal spur. The soft tissues appear grossly unremarkable. IMPRESSION: Mild osteoarthritis of the first metatarsophalangeal joint. Small plantar calcaneal spur. Electronically signed by: Mary Wheeler MD 03/25/2020 2:07 PM CDT
== END ==
LOC: RAD 10:40
PROVIDERS: ATTEND Orthopaedic Surgery
DX: M19.072 Primary osteoarthritis, left ankle and foot (principal); M77.31 Calcaneal spur, right foot

== ENCOUNTER → 2020-05-02 | Outpatient (CLI) | payer BC | LOC: LAB.O 08:12 | PROVIDERS: ATTEND Family Medicine | DX: R73.09 Other abnormal glucose (principal); I10 Essential (primary) hypertension; R53.83 Other fatigue ==

== ENCOUNTER → 2020-05-19 | Outpatient (CLI) | payer BC ==
--- NOTE | 2020-05-19 13:47 | RAD ---
EXAM DESCRIPTION: Hand,Left 3 Views CLINICAL HISTORY: HAND PAIN COMPARISON: None Available. TECHNIQUE: AP, LATERAL, AND OBLIQUE FINDINGS: Three-view x-ray left hand shows no fracture or dislocation. There is no bone lesion. There are no significant arthritic changes. There is no radiopaque foreign body. IMPRESSION: Negative for fracture. Electronically signed by: Ayush Hanley MD 05/19/2020 1:45 PM CDT
--- NOTE | 2020-05-19 13:48 | RAD ---
EXAM DESCRIPTION: Wrist,Left 3 Views CLINICAL HISTORY: 60 years, Female, WRIST PAIN COMPARISON: Previous left wrist x-ray April 18, 2008 FINDINGS: Left wrist 3 x-ray views is negative for fracture or dislocation. Carpal relationships are well-maintained. Distal radius and ulna appear intact. Normal metacarpals. No significant arthritic changes are observed. No change compared to the previous study. IMPRESSION: Negative for fracture or dislocation. Electronically signed by: Ayush Hanley MD 05/19/2020 1:47 PM CDT
== END ==
LOC: RAD 09:57
PROVIDERS: ATTEND Orthopaedic Surgery
DX: M25.532 Pain in left wrist (principal); M79.642 Pain in left hand